=== PATIENT | male | born 1985 | race Asian ===

== ENCOUNTER 2023-11-02 08:22 | Outpatient (AMB) | payer OTHER, SELFPAY ==
--- NOTE | 2023-11-02 08:52 | AM.OFFWIN_ITS ---
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 He also has some right ear pain and headache. He denies known fever but has felt hot/cold. Denies any respiratory symptoms. 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 [facility] Social History Patient Tobacco Use Status: Never used Tobacco Review of Systems Const All systems reviewed & are unremarkable except as noted in HPI and below Physical Exam Vital Signs: Last Vital Signs Temp 97.8 F 11/02/23 08:53 Pulse 88 11/02/23 08:53 BP 140/90 H 11/02/23 08:53 Pulse Ox 96 11/02/23 08:53 BMI result Body Mass Index 32.1 Const General: cooperative and healthy appearing Nutritional Appearance: average body habitus HEENT Head: Yes normal to inspection Ears: hearing grossly normal bilaterally, external ears normal, TM normal on the left and TM abnormal (right TM erythematous) Throat: Yes posterior oropharynx abnormal (Tonsillar hypertrophy, erythema, exudate) Neck Neck: Yes no lymphadenopathy Resp Effort & Inspection: normal respiratory effort Auscultation: clear to auscultation bilaterally Cardio Palpation: normal PMI Rate: regular rate Rhythm: regular rhythm Skin General skin exam: no rashes or lesions noted Extrem General: Yes capillary refill normal and Yes no clubbing, cyanosis or edema Psych Appearance: grossly normal Mental Status: mental status grossly normal Speech and movement: Normal speech and movement present Results AMB Rapid Strep AMB Rapid Strep Negative Last Edit by Melody Canseco on 11/02/23 09:10 Assessment & Plan Assessment & Plan (1) Pharyngitis: Code(s): J02.9 - Acute pharyngitis, unspecified Qualifiers: Pharyngitis/tonsillitis etiology: unspecified etiology Qualified Code(s): J02.9 - Acute pharyngitis, unspecified Plan: Clinically consistent with strep pharyngitis. Rapid strep was negative however will treat with Pen V. Also has slight right OM. Reviewed indications, use, possible side effects of medication. Also recommended increased hydration, Tylenol as needed, and throat spray/lozenges. If he does not improve with treatment or if symptoms worsen, he can return to the clinic for further evaluation. He verbalizes understanding and agrees to plan. Medications: New penicillin V potassium 500 mg PO BID 20 tabs 0RF 10 days J02.0 - Streptococcal pharyngitis Coding Level of Care Code Est Pt Level 3 (18368) Diagnoses Pharyngitis, unspecified etiology J02.9 Pharyngitis/tonsillitis etiology: unspecified etiology
[2023-11-02 08:53] VITALS: BP 140/90; PULSE 88; TEMP 36.6; O2SAT 96; BMI 32.1
== END 2023-11-02 09:19 | disposition home or self-care (01) ==
PROVIDERS: Visit Provider Nurse Practitioner Family
DX: J02.9 Acute pharyngitis, unspecified (principal)
CPT/HCPCS: 87880; 99213

== ENCOUNTER 2024-02-01 11:52 | Outpatient (AMB) | payer OTHER, SELFPAY ==
[2024-02-01 11:58] VITALS: BP 126/78; PULSE 82; O2SAT 98; BMI 33.0
--- NOTE | 2024-02-01 11:58 | MHC.PC.OV ---
Vital Signs 02/01/24 11:58 Height 5 ft 7 in Weight 211 lb BMI 33.0 BP 126/78 Blood Pressure Location Lt brachial Position Sitting Pulse 82 Pulse Source Pulse Oximeter Pulse Oximetry (%) 98 Oxygen Delivery Method Room Air Intake Visit Reasons: est care Intake Note: Patient is here as a new patient, and is concerned with metallic taste in mouth, which he got after Covid and still remains, and is concerned about left knee pain, described as Sharp . He states it's been for about a week now, hurts upon standing up. Allergies No Known Allergies Allergy (Verified 02/01/24 12:06) Medication List - Last Reconciled 02/01/24 by Milton Cutler MD No Known Home Meds Tobacco use date assessed: 02/01/24 Dental Screening Dental Screen Date: 02/01/24 Did you have a dental visit in the last 12 months?: Yes Did you have a dental problem in the last 6 months where you did not have access to dental care?: No Was dental information given to patient?: Patient has dentist HPI est care HPI Details New Patient? ?? [place] [place] Last office visit/CPE:? > 1 yr Acute issue(s):? Change?in?taste?after?COVID Left?knee?pain ?? PMHx:? None SurgHx:? [place] teeth FHx:? Pt denies SocHx:? Nonsmoker, EtOH Occassional 1-2. No drugs HPI Comments History of Present Illness Details Documentation assistance for Milton Cutler MD, was provided by Clayton Bradley, Residential Green Building Designer on 02/01/2024 at 12:28 PM EST. I, Dr. Cutler, have read, observed, and verified documentation. [facility] Medical History (Updated 02/01/24 @ 12:44 by Clayton Bradley) No pertinent past medical history Surgical History (Updated 02/01/24 @ 12:[address] CMA) [place] teeth removed Social History (Updated 02/01/24 @ 12:[address] CMA) Household Members: None Both parents involved: No Caregiver staying overnight: No Housing: House Are you a primary resident care manager to a significant other at home: No Do you presently have visiting nurse or other home services: No 75 years or older and lives alone: No Alcohol intake: current Alcohol intake frequency: holidays/special occasions only Alcohol type: beer Patient Tobacco Use Status: Never used Tobacco e-Cigarette/Vaping Use: Never Used Use of substances other than those prescribed or required for medical reasons: No Have you been hit, kicked, punched, or otherwise hurt by someone within the past year? 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 Cognitive needs: No Hearing needs: No Vision needs: No Review of Systems Const Denies chills, Denies fatigue, Denies fever(s), Denies headache(s) and Denies weakness ENT Denies dizziness and Denies headache(s) Card Denies chest pain, Denies lightheadedness, Denies dyspnea and Denies other (Palpitations) Resp Denies cough, Denies dyspnea, Denies wheezing and Denies other ( shortness of breath) Musc Denies numbness and Denies tingling Neuro Denies dizziness, Denies headache(s), Denies numbness, Denies tingling, Denies paresthesias and Denies weakness Psych Denies anxiety and Denies depression Endo Denies fatigue Aller/Immun Denies wheezing Physical exam (Primary Care) Vital Signs: Last Vital Signs Pulse 82 02/01/24 11:58 BP 126/78 02/01/24 11:58 Pulse Ox 98 02/01/24 11:58 Oxygen Delivery Method Room Air 02/01/24 11:58 BMI result Body Mass Index 33.0 Tobacco/Smoking Status: Tobacco use Status Tobacco use date assessed 02/01/24 02/01/24 12:16 Patient Tobacco Use Status Never used Tobacco 02/01/24 12:16 e-Cigarette/Vaping Use Never Used 02/01/24 12:16 Const General: no acute distress and well developed Nutritional Appearance: well nourished Orientation/consciousness: patient oriented x3 HENMT Head: Yes normocephalic and Yes atraumatic Eyes General: appearance normal, both eyes and all related structures Pupils: Equal, round and reactive pupils present EOM: EOMs intact bilaterally Resp Effort & Inspection: normal respiratory effort Auscultation: clear to auscultation bilaterally Cardio Rate: regular rate Rhythm: regular rhythm Heart sounds: S1 normal heart sound present, S2 normal heart sound present, no gallops, no murmurs and no rubs Neuro General: patient oriented x3 and gait normal Cranial nerves: Yes Equal, round and reactive pupils present Psych Affect: normal affect Assessment and Plan Assessment & Plan (1) Left knee pain: Code(s): M25.562 - Pain in left knee Plan: Left?knee?pain?with?no?discrete?injury?recalled Check?x-ray Start?physical?therapy Can?use?naproxen,?ice?and?he If?not?improving?would?refer?to?ortho (2) Altered taste: Code(s): R43.2 - Parage[place]ia Plan: Altered?metallic??taste of secretions in throat but not altered taste overall?and?patient?also?has?complaints?of?heartburn Trial?omeprazole?and?referred?to?Gastroenterology Patient?also?notes?that?metallic?taste?began?around?the?time?of?COVID?infection - I?am?not?overly?convinced?that?this?is?the?underlying?cause. (3) History of COVID-19: Code(s): Z86.16 - Personal history of COVID-19 Plan: Resolve (4) Epigastric discomfort: Code(s): R10.13 - Epigastric pain Plan: Heartburn/digestion?changes Trialing?omeprazole Referred?to?Gastroenterology (5) Laboratory exam ordered as part of routine general medical examination: Code(s): Z00.00 - Encounter for general adult medical examination without abnormal findings Plan: Check?labs Orders: Orders Comprehensive [place]. Panel Fast Today Z00.00 - Encounter for general adult medical examination without abnormal findings Microalbumin, Random (w Creat) Today I10 - Essential (primary) hypertension UA and rflx microscopic Today Z00.00 - Encounter for general adult medical examination without abnormal findings PT Evaluation and Treatment Today M25.562 - Pain in left knee Lipid Panel Today Z00.00 - Encounter for general adult medical examination without abnormal findings TSH reflex Free T4 Today Z00.00 - Encounter for general adult medical examination without abnormal findings XR knee LT 3V Today M25.562 - Pain in left knee Referrals Gastroenterology Referral R12 - Heartburn, R43.2 - Parageusia Medications: New omeprazole 40 mg PO DAILY 30 days 30 caps 1RF naproxen 500 mg PO BID 10 days PRN 20 tabs 0RF pain Discontinued penicillin V potassium Discontinued Reason: Patient Completed Course 500 mg PO BID 10 days 20 tabs 0RF J02.0 - Streptococcal pharyngitis Coding Level of Care Code New Pt Level 3 (19877) Diagnoses Left knee pain M25.562 Altered taste R43.2 History of COVID-19 Z86.16 Epigastric discomfort R10.13 Laboratory exam ordered as part of routine general medical examination Z00.00
== END 2024-02-01 15:11 | disposition home or self-care (01) ==
PROVIDERS: Visit Provider Family Medicine
DX: M25.562 Pain in left knee (principal); R43.2 Parageusia; Z86.16 Personal history of COVID-19; R10.13 Epigastric pain; Z00.00 Encounter for general adult medical examination without abnormal findings
CPT/HCPCS: 99203

== ENCOUNTER 2024-03-14 08:18 | Outpatient (REF) | payer OTHER, SELFPAY ==
--- NOTE | ~2024-03-14 | XR_ITS ---
EXAMINATION: XR KNEE, LEFT CLINICAL INFORMATION: Left knee pain COMPARISON: None available. TECHNIQUE: Four views of the left knee. FINDINGS: BONES: Bony structures are intact. There is no focal bone destruction or periosteal reaction seen. JOINTS: Alignment of joints is normal. There is mild asymmetric decrease in medial compartment left tibiofemoral joint space. SOFT TISSUE: Soft tissue is normal. No radiopaque foreign body or abnormal air collection is seen. XR/XR knee LT 4V IMPRESSION: 1. 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 2. No fracture or dislocation or signs of osteomyelitis are found.
[2024-03-14 10:01] LABS: MANUAL DIFF FLAG NO
[2024-03-14 10:19] LABS: Appearance Urine Clear; Color Urine Yellow; Glucose Urine UA Negative (Negative); Leukocyte Esterase Urine Negative (Negative); Nitrite Urine Negative (Negative); PH 6.5 (5.0-9.0); Specific Gravity - Urine <= 1.005 (1.005-1.025); Urine Blood Negative (Negative); Urine Ketones Negative (Negative); Urine Protein Negative (Neg-Trace)
[2024-03-14 10:21] LABS: Basophils Percent Auto 0.4 % (0-2); Eosinophils Percent Auto 0.6 % (0-4); Hematocrit 41.3 % (42.0-52.0); Hemoglobin 14.1 g/dl (14.0-18.0); Imm Gran Abs Auto 0.02 X10*3/uL (0.00-0.03); Imm Gran Pct Auto 0.4 % (0.0-0.4); Lymphocytes Absolute Auto 2.2 X10*3/uL (1.2-4.9); Lymphocytes Percent Auto 43.9 % (20-40); Mean Corpuscular HGB Conc 34.1 g/dl (31.0-36.0); Mean Corpuscular Hemoglobin 31.8 pg (27.0-33.0); Mean Platelet Volume 9.9 fL (9.4-12.4); Monocytes Absolute Auto 0.2 X10*3/uL (0.1-1.2); Monocytes Percent Auto 4.5 % (2-11); Neutrophils Absolute Auto 2.5 x10*3/uL (2.0-8.3); Neutrophils Percent Auto 50.2 % (45-73); Platelet Count 228 X10*3/uL (160-400); Red Blood Count 4.44 X10*6/uL (4.60-5.80); Red Cell Distribution Width 11.8 % (11.0-16.0); White Blood Count 4.9 X10*3/uL (4.8-10.8)
[2024-03-14 10:31] LABS: Creatinine Urine 28.83 mg/dL; Microalbumin Urine < 5.0 mg/L
[2024-03-14 10:41] LABS: Alanine Aminotransferase 48 U/L (0-40); Albumin Level 4.4 g/dL (3.5-5.0); Alkaline Phosphatase 70 U/L (39-117); Anion Gap 10 (12-20); Aspartate Amino Transferase 37 U/L (5-37); Bilirubin Total 0.8 mg/dL (0.0-1.0); Blood Urea Nitrogen 11 mg/dL (9-16); Calcium 9.2 mg/dL (8.4-10.2); Carbon Dioxide 29 mmol/L (22-29); Chloride 105 mmol/L (96-108); Cholesterol 187 mg/dL (<200); Estimated Glomerular Filt Rate > 60; Glucose Fasting 112 mg/dL (60-99); HDL Cholesterol 39 mg/dL (>40); LDL Cholesterol Calculated 117 mg/dL (<100); Sodium 140 mmol/L (135-145); Total Protein 7.4 g/dL (6.5-8.0); Triglycerides 159 mg/dL (<150)
[2024-03-14 10:58] LABS: TSH reflex Free T4 1.33 uIU/mL (0.32-4.0)
[2024-03-14 11:23] LABS: Erythrocyte Sedimentation Rate 3 MM/HR (0-15)
== END 2024-03-14 08:19 | disposition home or self-care (01) ==
LOC: HO.HMGCX 08:18
PROVIDERS: PCP Family Medicine; Visit Provider Family Medicine
DX: M25.562 Pain in left knee (principal); I10 Essential (primary) hypertension; Z00.00 Encounter for general adult medical examination without abnormal findings
CPT/HCPCS: 36415; 73564; 80053; 80061; 81003; 82570; 84443; 85025; 85652

== ENCOUNTER 2024-11-07 09:05 | Outpatient (AMB) | payer OTHER, SELFPAY ==
--- NOTE | 2024-11-07 09:17 | MHC.OFFWIV ---
Intake Vital Signs 11/07/24 09:21 Height 5 ft 7 in Weight 219 lb 8 oz BMI 34.4 BP 120/70 Blood Pressure Location Lt brachial Position Sitting Respiration 12 Pulse 89 Pulse Source Pulse Oximeter Temp 98.5 F Temp Source Oral Pulse Oximetry (%) 97 Oxygen Delivery Method Room Air Intake Visit Reasons: EST/STOMACH PAIN Intake Note: patient is scheduled for a sick visit due to stomach discomfort and pressure Patient Tobacco Use Status: Never used Tobacco Databases Computer Consultant Required: No Allergies No Known Allergies Allergy (Verified 11/07/24 09:19) HPI EST/STOMACH PAIN HPI Details Moderately?severe?abdominal?pain?and?pressure. He?notes?that?he?ate?a?large?meal?around?midnight?last?night. ?Awoke?with?pain?and?distention?today. Bowel?movement?this?morning?was?normal. Subsequently?in?pressure?have?intensified?and?he?notes?that?he?does not feel he is passing gas. [facility] Medical History (Updated 11/07/24 @ 09:47 by Milton Cutler MD) No pertinent past medical history Surgical History (Updated 02/01/24 @ 12:[address] CMA) [place] teeth removed Social History (Updated 02/01/24 @ 12:[address] CMA) Household Members: None Both parents involved: No Caregiver staying overnight: No Housing: House Are you a primary nurse behavioral health care to a significant other at home: No Do you presently have visiting nurse or other home services: No 75 years or older and lives alone: No Alcohol intake: current Alcohol intake frequency: holidays/special occasions only Alcohol type: beer Patient Tobacco Use Status: Never used Tobacco e-Cigarette/Vaping Use: Never Used Special hawa needs: No Agree to transfusion: Yes service: Yes Current occupational status: employed 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 Cognitive needs: No Hearing needs: No Vision needs: No Review of Systems Const Denies chills, Denies fatigue, Denies fever(s), Denies headache(s) and Denies weakness ENT Denies dizziness and Denies headache(s) Card Denies chest pain, Denies lightheadedness, Denies dyspnea and Denies other (Palpitations) Resp Denies cough, Denies dyspnea, Denies wheezing and Denies other ( shortness of breath) GI Details: Abdominal?pain?and?distention?after?overeating?late?at?night. Musc Denies numbness and Denies tingling Neuro Denies dizziness, Denies headache(s), Denies numbness, Denies tingling, Denies paresthesias and Denies weakness Psych Denies anxiety and Denies depression Endo Denies fatigue Aller/Immun Denies wheezing Physical Exam Vital Signs: Last Vital Signs Temp 98.5 F 11/07/24 09:21 Pulse 89 11/07/24 09:21 Resp 12 11/07/24 09:21 BP 120/70 11/07/24 09:21 Pulse Ox 97 11/07/24 09:21 Oxygen Delivery Method Room Air 11/07/24 09:21 BMI result Body Mass Index 34.4 Const General: no acute distress and well developed Nutritional Appearance: well nourished Orientation/consciousness: patient oriented x3 HEENT Head: Yes normocephalic and Yes atraumatic Eyes General: appearance normal, both eyes and all related structures Pupils: Equal, round and reactive pupils present EOM: EOMs intact bilaterally Resp Effort & Inspection: normal respiratory effort Auscultation: clear to auscultation bilaterally Cardio Rate: regular rate Rhythm: regular rhythm Heart sounds: S1 normal heart sound present, S2 normal heart sound present, no gallops, no murmurs and no rubs GI Other: Abdominal?distension.??Minimal?tenderness?to?palpation?though?mild?discomfort.??No?rebound?tenderness.??Mild?tympany. No?CVA?tenderness?to?percussion.??No?suprapubic?or?epigastric?tenderness. Neuro General: patient oriented x3 and gait normal Cranial nerves: Yes Equal, round and reactive pupils present Psych Affect: normal affect Assessment & Plan Assessment & Plan (1) Abdominal pain: Code(s): R10.9 - Unspecified abdominal pain Plan: Worsening?abdominal?pain?and?distention. Patient?had?a?large?meal?midnight?last?night. Normal?bowel?movement?this?morning?despite?discomfort.??Since?then?however?he?says?he?has?felt?more?distended?does?think?he?is?passing?any?gas?now. Significant?nausea.??History dyspepsia?and?has?taken?omeprazole?previously. Will?check?abdomen?plain?film?for?evidence?ileus?obstruction. Will?give?him?simethicone Advised?clear?liquid?diet?today?and?he?will?advance?diet?as?tolerated?tomorrow. If?worsening?or?not?improving,?go?to?the?emergency?department Will?check?CMP,?CBC?and?lipase. Will?call?patient?this?afternoon?with?results?x-ray?and?lab?work. Orders: Orders XR KUB Today R10.9 - Unspecified abdominal pain Complete Blood Count Auto Diff Today R10.9 - Unspecified abdominal pain, Z00.00 - Encounter for general adult medical examination without abnormal findings Comprehensive Met. Panel Today R10.9 - Unspecified abdominal pain Lipase Today R10.9 - Unspecified abdominal pain Medications: New simethicone (Gas Relief (simethicone)) 80 mg PO BID-QID PRN 30 tabs 0RF abdominal distention 7 days Coding Level of Care Code Est Pt Level 3 (52851) Diagnoses Abdominal pain R10.9
[2024-11-07 09:21] VITALS: BP 120/70; PULSE 89; RESP 12; TEMP 36.9; O2SAT 97; BMI 34.4
== END 2024-11-07 10:16 | disposition home or self-care (01) ==
PROVIDERS: PCP Family Medicine; Visit Provider Family Medicine
DX: R10.9 Unspecified abdominal pain (principal)

== ENCOUNTER 2024-11-07 10:12 | Outpatient (REF) | payer OTHER, SELFPAY ==
[2024-11-07 11:24] LABS: MANUAL DIFF FLAG NO
[2024-11-07 11:59] LABS: Basophils Percent Auto 0.2 % (0-2); Eosinophils Percent Auto 0.3 % (0-4); Hematocrit 44.5 % (42.0-52.0); Hemoglobin 15.6 g/dl (14.0-18.0); Imm Gran Abs Auto 0.02 X10*3/uL (0.00-0.03); Imm Gran Pct Auto 0.2 % (0.0-0.4); Lymphocytes Absolute Auto 1.1 X10*3/uL (1.2-4.9); Lymphocytes Percent Auto 12.7 % (20-40); Mean Corpuscular HGB Conc 35.1 g/dl (31.0-36.0); Mean Corpuscular Hemoglobin 31.7 pg (27.0-33.0); Mean Corpuscular Volume 90.4 fL (80.0-98.0); Mean Platelet Volume 9.5 fL (9.4-12.4); Monocytes Absolute Auto 0.4 X10*3/uL (0.1-1.2); Monocytes Percent Auto 4.5 % (2-11); Neutrophils Percent Auto 82.1 % (45-73); Platelet Count 239 X10*3/uL (160-400); Red Blood Count 4.92 X10*6/uL (4.60-5.80); Red Cell Distribution Width 11.9 % (11.0-16.0); White Blood Count 8.6 X10*3/uL (4.8-10.8)
[2024-11-07 12:30] LABS: Alanine Aminotransferase 104 U/L (0-40); Albumin Level 4.7 g/dL (3.5-5.0); Alkaline Phosphatase 72 U/L (39-117); Anion Gap 11 (12-20); Aspartate Amino Transferase 58 U/L (5-37); Bilirubin Total 0.7 mg/dL (0.0-1.0); Blood Urea Nitrogen 17 mg/dL (9-16); Calcium 9.5 mg/dL (8.4-10.2); Carbon Dioxide 30 mmol/L (22-29); Chloride 104 mmol/L (96-108); Estimated Glomerular Filt Rate > 60; Glucose Random 101 mg/dL (60-115); Lipase 24 U/L (8-78); Potassium 4.2 mmol/L (3.3-5.1); Sodium 141 mmol/L (135-145); Total Protein 7.9 g/dL (6.5-8.0)
== END 2024-11-07 10:13 | disposition home or self-care (01) ==
LOC: HO.WFDLDS 10:12
PROVIDERS: Visit Provider Family Medicine
DX: Z00.00 Encounter for general adult medical examination without abnormal findings (principal); R10.9 Unspecified abdominal pain
CPT/HCPCS: 36415; 80053; 83690; 85025; 99212

== ENCOUNTER 2024-11-10 12:58 | Outpatient (REF) | payer OTHER, SELFPAY ==
--- NOTE | ~2024-11-10 | XR_ITS ---
EXAMINATION: XR ABDOMEN 1 VIEW (KUB) HISTORY: R10.9 - Unspecified abdominal pain COMPARISON: There are no prior studies for comparison. FINDINGS: Two supine views of the abdomen are submitted. The bowel gas pattern is unremarkable, without evidence of mechanical obstruction. There is a large amount of stool throughout the colon. No abnormal calcifications are identified. There are no abnormal soft tissue masses. The bones are intact. XR/XR KUB IMPRESSION: Large amount of stool throughout the colon. Electronically signed by: Anurag Mayo MD 11/10/2024 01:27 PM EDT
== END 2024-11-10 12:59 | disposition home or self-care (01) ==
LOC: HO.XRAY 12:58
PROVIDERS: PCP Family Medicine; Visit Provider Family Medicine
DX: R10.9 Unspecified abdominal pain (principal)
CPT/HCPCS: 74018

== ENCOUNTER → 2024-11-10 13:08 | Outpatient (BNV) | payer OTHER, SELFPAY | PROVIDERS: PCP Family Medicine; Visit Provider Radiology Diagnostic Radiology | DX: R10.9 Unspecified abdominal pain (principal) | CPT/HCPCS: 74018 ==